=== PATIENT | female | born 1950 | race Caucasian/White ===

== ENCOUNTER 2019-04-03 10:04 | Outpatient (CLI) | payer BC, MEDICARE, OTHER ==
[~2019-04-03] VITALS: Ht 160 cm; Wt 80.7 kg
[2019-04-03] VITALS (8 sets, daily range): BP systolic 74–106; BP diastolic 37–64
[2019-04-03 10:24] LABS: BASO # 0.1 x10^3/uL (0.0-0.2); BASO % 1 % (0-3); EOS # 0.4 x10^3/uL (0.0-0.7); EOS % 5 % (0-3); HEMATOCRIT 47.3 % (36.0-47.0); HEMOGLOBIN 16.2 g/dL (12.0-15.5); LYMPH # 0.6 x10^3/uL (1.0-4.8); LYMPH % 9 % (24-48); MEAN CORPUSCULAR HEMOGLOBIN 33 pg (25-35); MEAN CORPUSCULAR HGB CONC 34 g/dL (31-37); MEAN CORPUSCULAR VOLUME 97 fL (79-100); MONO # 0.5 x10^3/uL (0.0-1.1); MONO % 7 % (0-9); NEUT # 5.4 x10^3/uL (1.8-7.7); NEUT % 79 % (31-73); PLATELET COUNT 265 x10^3/uL (140-400); RED BLOOD COUNT 4.88 x10^6/uL (3.50-5.40); RED CELL DISTRIBUTION WIDTH 14.8 % (11.5-14.5); WHITE BLOOD COUNT 6.9 x10^3/uL (4.0-11.0)
[2019-04-03 10:34] LABS: CALCIUM 8.1 mg/dL (8.5-10.1); CREATININE 0.9 mg/dL (0.6-1.0); GFR 62.6; POTASSIUM 4.2 mmol/L (3.5-5.1)
[2019-04-03 10:35] LABS: PROTHROMBIN TIME PATIENT 12.4 SEC (11.7-14.0)
[2019-04-03 10:47] LABS: ALBUMIN/GLOBULIN RATIO 0.6 (1.0-1.7); TOTAL BILIRUBIN 0.3 mg/dL (0.2-1.0); TOTAL PROTEIN 5.2 g/dL (6.4-8.2)
[2019-04-03] MEDS ORDERED: METH-38 PO (11:18)
[2019-04-03] MEDS ORDERED: QUET300T5 PO (11:18)
[2019-04-03] MEDS ORDERED: TRAZ-118 PO (11:18)
[2019-04-03] MEDS ORDERED: ASPI81TA50 PO (11:18)
[2019-04-03] MEDS ORDERED: OXYC5CAP PO (11:18)
[2019-04-03] MEDS ORDERED: HYDR8TAB PO (11:18)
[2019-04-03 13:09] LABS: BF COLOR YELLOW; BF SOURCE PLEURAL
[2019-04-03 13:11] LABS: BF CLARITY HAZY; PH,BODY FLUID 7.21
--- NOTE | 2019-04-03 13:19 | NUR ---
pt blood pressure dropped to SBP 70's. Dr Reese at bedside. Will obtain chest x-ray and continue to push fluids. Pt blood pressure 90/52 at this time
--- NOTE | 2019-04-03 13:32 | RAD ---
Ultrasound-guided left-sided thoracentesis 04/03/2019 11:26 AM Indication: Pleural effusion. Shortness of breath Procedure: Informed consent was obtained. A timeout procedure was performed. Sonographic evaluation of the left chest was performed demonstrating moderate pleural effusion. The left posterior chest was prepped and draped in sterile fashion. 1% lidocaine without epinephrine was administered for local anesthesia. Real-time ultrasonographic guidance was used in passing a 5 [employer] [employer] catheter into the left pleural space. 1.8 L of serosanguineous pleural fluid was removed. Samples of fluid were sent to the lab for further evaluation per ordering physician request. The catheter was removed and pressure held to achieve hemostasis. A sterile dressing was applied. No immediate complications were identified. The patient tolerated the procedure well. Impression: Left sided ultrasound-guided thoracentesis
--- NOTE | 2019-04-03 13:37 | RAD ---
CHEST AP ONLY Clinical History: Left-sided thoracentesis Technique: AP view of the chest was obtained at 04/03/2019 1:14 PM. Comparison: None. Findings: The heart is moderately enlarged. The pulmonary vessels appear normal. There is hazy opacity in the left lung base and obscuration of the left hemidiaphragm. Impression: Moderate left effusion with adjacent infiltrate. No pneumothorax. Electronically signed by: Rolando Kohler III, MD (04/03/2019 1:34 PM) [facility]
--- NOTE | 2019-04-03 14:15 | NUR ---
pt ambulated without difficulty. Pt states she feels much better. No shortness of air on exertion. Discharge instructions reviewed. Pt to follow up with her primary care
[2019-04-03 15:28] LABS: BF MON % 82 %; BF RBC COUNT 125 /cmm (Not Established); BF WBC COUNT 2975 /cmm (Not Established)
[2019-04-03 15:29] LABS: BF PMN % 18 %
--- NOTE | 2019-04-04 14:07 | PATHOLOGY ---
Note [facility] Accession Number: [id number] TESTS RESULT FLAG UNITS REF RANGE LAB Clinician Provided Cytology Information No. of containers..01 Other (Miscellaneous) Source: LT PLEURAL FLUID DIAGNOSIS: LT PLEURAL FLUID NEGATIVE FOR MALIGNANT CELLS. FOCALLY REACTIVE MESOTHELIAL CELLS, CHRONIC AND ACUTE INFLAMMATORY CELLS, AND MACROPHAGES PRESENT. SILVER METHENAMINE STAINED SMEARS ARE NEGATIVE FOR PNEUMOCYSTIS JIROVECI. NO FUNGAL ORGANISMS ARE PRESENT. Signed out by: Emery Gonzalez MD, Pathologist NPI- [id number] Performed by: Robert Caldera, Inspector Packager ([facility]) Gross description: 36 ML, YELLOW, CLOUDY /LCS 05/20/1840 0000 Local FLAG LEGEND: L-Low Normal,H-High Normal,LL-Alert Low,HH-Alert High <-Panic Low,>-Panic High,A-Abnormal,AA-Critical Abnormal Performed at: [facility] [address] [place] [address] Oscar Alejandra MD, 02 [facility] [address] [place] [address] Emery Gonzalez MD, Specimen Comment: A courtesy copy of this report has been sent to [phone], [phone] Specimen Comment: [id number] Specimen Comment: [id number] Specimen Comment: Report sent to / DR HAYNES Specimen Comment: A duplicate report has been generated due to demographic updates. Performed at: [address], [place], [place] [id number] MD Oscar Alejandra MD Phone: [phone]
== END 2019-04-03 14:15 | disposition home or self-care (01) ==
LOC: INTRAD 10:04
PROVIDERS: ATTEND Family Medicine
DX: J90 Pleural effusion, not elsewhere classified (principal); Z79.899 Other long term (current) drug therapy
CPT/HCPCS: 32555; 36415; 71045; 80053; 82150; 82465; 82945; 83615; 83986; 84157; 85025; 85610; 87071; 87075; 87102; 87116; 88112; 88184; 88185; 88312; 89050